=== PATIENT | female | born 1960 | race Caucasian/White ===

== ENCOUNTER 2018-11-28 12:32 | Emergency (ER) | payer MEDICAID, OTHER ==
[~2018-11-28] VITALS: Ht 149.9 cm; Wt 81.6 kg
[2018-11-28 13:40] LABS: Basophils # (auto) 0.1 uL; Basophils % (auto) 1.1 % (0.0-2.0); Eosinophils # (auto) 0.1 uL; Eosinophils % (auto) 1.2 % (0.0-7.0); Hematocrit 42.1 % (36.0-46.0); Hemoglobin 14.3 g/dL (12.2-16.2); Lymphocytes # (auto) 0.5 uL; Lymphocytes % (auto) 7.2 % (10.0-50.0); Mean Corpuscular Hemoglobin 30.5 pg (28.0-32.0); Mean Corpuscular Hgb Conc. 33.9 g/dL (32.0-36.0); Mean Corpuscular Volume 89.8 fL (80.0-100.0); Monocytes # (auto) 0.4 uL; Monocytes % (auto) 5.9 % (0.0-12.0); Neutrophils # (auto) 6.2 uL; Neutrophils % (auto) 84.6 % (37.0-80.0); Nucleated Red Blood Cells % 0.1 %; Platelet Count (auto) 313 10^3/uL (140-450); Red Blood Cells 4.69 10^6/uL (4.0-5.20); Red Cell Distribution Width 14.1 % (11.8-14.3); White Blood Cell 7.4 10^3/uL (4.4-10.8)
[2018-11-28 13:54] LABS: Albumin 3.3 g/dL (3.4-5.0); Calcium 9.5 mg/dL (8.5-10.1); Potassium 3.8 mmol/L (3.5-5.1)
[2018-11-28 13:58] LABS: BUN/Creatinine Ratio 12.7; Total Protein 7.7 g/dL (6.4-8.2)
[2018-11-28 14:18] LABS: INR 0.99 (0.9-1.15); Partial Thromboplastin Time 26.5 sec (23.64-32.05)
[2018-11-28 14:50] LABS: Urine Bacteria FEW /hpf (None Seen); Urine Blood 3+ /uL (Negative); Urine Mucus FEW (None Seen); Urine Specific Gravity 1.016 (1.001-1.035); Urine WBC 73 /hpf (0 - 5)
[2018-11-28] MEDS ORDERED: cloNIDine HCL 0.1 MG TAB PO ONE ×2 (15:15→17:30)
[2018-11-28] MEDS ORDERED: cefTRIAXone 1GM/50ML D5W 50 ML IV ONE (15:45)
[2018-11-28] MEDS ORDERED: ALPRAZolam 0.5 MG TAB PO ONE (17:30)
[2018-11-28] MEDS ORDERED: ACETAMINOPHEN 325 MG TAB PO ONE (19:00)
[2018-11-28 19:53] VITALS: BP 140/77
== END 2018-11-28 20:05 | disposition home or self-care (01) ==
LOC: ER 12:32
DX: N39.0 Urinary tract infection, site not specified (principal); I10 Essential (primary) hypertension; F41.9 Anxiety disorder, unspecified; R22.9 Localized swelling, mass and lump, unspecified; Z63.4 Disappearance and death of family member; Z53.29 Procedure and treatment not carried out because of patient's decision for other reasons
CPT/HCPCS: 36415; 71045; 74176; 80053; 81001; 82150; 83690; 83735; 84702; 85025; 85610; 85730; 93005; 94761; 96365; 99284; J0696

== ENCOUNTER 2019-01-08 01:58 | Emergency (ER) | payer MEDICAID ==
[~2019-01-08] VITALS: Ht 124.5 cm; Wt 63.5 kg
[2019-01-08] MEDS ORDERED: cloNIDine HCL 0.1 MG TAB PO ONE (02:30)
[2019-01-08] MEDS ORDERED: ONDANSETRON HCL 4 MG/2 ML VIAL IV ONE (03:00)
[2019-01-08] MEDS ORDERED: MORPHINE SULFATE 4 MG/ML SYR/VIAL IV ONE ×2 (03:00→07:00)
[2019-01-08 03:15] LABS: Basophils # (auto) 0.1 uL; Basophils % (auto) 1.1 % (0.0-2.0); Eosinophils # (auto) 0 uL; Eosinophils % (auto) 0.2 % (0.0-7.0); Hematocrit 46.3 % (36.0-46.0); Hemoglobin 15.6 g/dL (12.2-16.2); Lymphocytes # (auto) 0.4 uL; Lymphocytes % (auto) 3.4 % (10.0-50.0); Mean Corpuscular Hemoglobin 29.1 pg (28.0-32.0); Mean Corpuscular Hgb Conc. 33.7 g/dL (32.0-36.0); Mean Corpuscular Volume 86.4 fL (80.0-100.0); Monocytes # (auto) 0.6 uL; Monocytes % (auto) 5.3 % (0.0-12.0); Neutrophils # (auto) 10.4 uL; Platelet Count (auto) 439 10^3/uL (140-450); Red Blood Cells 5.36 10^6/uL (4.0-5.20); Red Cell Distribution Width 14.7 % (11.8-14.3); White Blood Cell 11.5 10^3/uL (4.4-10.8)
[2019-01-08 03:45] LABS: Albumin 3.3 g/dL (3.4-5.0); Anion Gap 11 (5-15); Blood Urea Nitrogen 59 mg/dL (7-18); Calcium 10.1 mg/dL (8.5-10.1); Carbon Dioxide 23 mmol/L (21-32); Chloride 99 mmol/L (98-107); Glucose 117 mg/dL (74-106); Lipase 421 U/L (73-393); Potassium 4.6 mmol/L (3.5-5.1); Sodium 133 mmol/L (136-145)
[2019-01-08 03:46] LABS: INR 1.04 (0.9-1.15); Partial Thromboplastin Time 26.6 sec (23.64-32.05)
[2019-01-08 03:47] LABS: Alanine Aminotransferase 15 U/L (13-56); Amylase 77 U/L (25-115); Aspartate Aminotransferase 16 U/L (15-37); BUN/Creatinine Ratio 24.2; GFR African American 26 mL/min; GFR Non-African American 22 mL/min
[2019-01-08 03:52] LABS: Alkaline Phosphatase 35 U/L (45-117); Bilirubin, Total 0.8 mg/dL (0.2-1.0); Total Protein 8.1 g/dL (6.4-8.2)
[2019-01-08] MEDS ORDERED: PROMETHAZINE HCL 25 MG/ML 1ML IV ONE ×2 (04:00→10:45)
[2019-01-08] MEDS ORDERED: LABETALOL HCL 5 MG/ML ML 20ML VIAL IV ONE (04:30)
[2019-01-08] MEDS ORDERED: SODIUM CHLORIDE 0.9% 1,000 ML IV ONE (09:45)
[2019-01-08] MEDS ORDERED: cefTRIAXone 1GM/50ML D5W 50 ML IV ONE (09:45)
[2019-01-08] MEDS ORDERED: CLINDAMYCIN 900MG IV 50 ML IV ONE (09:45)
[2019-01-08] MEDS ORDERED: BENZOCAINE (DENTAL) 20 % SPRAY 60ML MT ONE (09:45)
[2019-01-08] MEDS ORDERED: SODIUM CHLORIDE 0.9% 500 ML IV ONE (09:45)
[2019-01-08 10:30] VITALS: BP 153/84
== END 2019-01-08 10:58 | disposition short-term general hospital (02) ==
LOC: ER 01:58
DX: K85.90 Acute pancreatitis without necrosis or infection, unspecified (principal); R18.0 Malignant ascites; C55 Malignant neoplasm of uterus, part unspecified; N18.9 Chronic kidney disease, unspecified
CPT/HCPCS: 36415; 71045; 74176; 80053; 82150; 83605; 83690; 83880; 84484; 85025; 85610; 85730; 96365; 96368; 96375; 96376; 99285; J0696; J2270; J2405; J2550; J3490; J7030

== ENCOUNTER 2024-10-09 13:02 | Emergency (ER) | payer MEDICAID ==
[~2024-10-09] VITALS: Ht 149.9 cm; Wt 64.3 kg
[2024-10-09 13:30] VITALS: BP 122/94; PULSE 95; RESP 18; TEMP 97.9; O2SAT 100
--- NOTE | 2024-10-09 14:27 | ED.PDOC ---
History of Present Illness(SKN HPI Comments 64 y.o female with PMHx of uterine/cervical cancer, HTN, CKD, and DM, presents to the ED for an evaluation of a foreign object. Patient reports she accidently dropped a glass object in her kitchen, swept it up but when she came back to get something she was walking barefoot and stepped on a piece of glass. Patient reports feeling the glass inside, however was unable to retrieve it as she had pain on palpation. Patient presents with no bleeding or open wounds. Chief Complaint: Foreign Body Time Seen by MD: 14:19 Primary Care Provider: NONE History of Present Illness: Nurses Notes, Medications, Allergies Allergies: Coded Allergies: NO KNOWN ALLERGIES (Unverified , 11/28/18) Information Source: Patient Severity: Moderate Timing: Days (1) Duration: Since onset Location: Foot Mechanism: Spontaneous Onset Object: Glass Condition of Object: Contaminated Wound Type: Puncture Associated Signs and Symptoms: Redness, Swelling, Pain Past Medical History PAST MEDICAL HISTORY: Cancer, CKF, HTN Surgical History: Appendectomy, Hysterectomy [employer] History: Endometriosis, Ovarian Cancer, Ovarian Cysts, Uterine Fibroids Family History Family History: Family hx of Cancer Family History (Other): Mother had a history of breast cancer and uterine cancer [id number] has stomach cancer Social History Smoker: Non-Smoker Alcohol: Denies ETOH Use Drugs: Denies Drug Use Lives In: Home Constitutional: denies: chills, diaphoresis, fatigue, fever, malaise, sweats, weakness, others EENTM: denies: blurred vision, double vision, ear bleeding, ear discharge, ear drainage, ear pain, ear ringing, eye pain, eye redness, hearing loss, mouth pain, mouth swelling, nasal discharge, nose bleeding, nose congestion, nose pain, photophobia, tearing, throat pain, throat swelling, voice changes, others Respiratory: denies: cough, hemoptysis, orthopnea, SOB at rest, shortness of breath, SOB with excertion, stridor, wheezing, others Cardiovascular: denies: chest pain, dizzy spells, diaphoresis, Dyspnea on exertion, edema, irregular heart beat, left arm pain, lightheadedness, palpitations, PND, syncope, others Gastrointestinal: denies: abdomen distended, abdominal pain, blood streaked bowels, constipated, diarrhea, dysphagia, difficulty swallowing, hematemesis, melena, nausea, poor appetite, poor fluid intake, rectal bleeding, rectal pain, vomiting, others Genitourinary: denies: abnormal vagina bleeding, burning, dyspareunia, dysuria, flank pain, frequency, hematuria, incontinence, pain, , vagina discharge, urgency, others Neurological: denies: dizziness, fainting, headache, left sided numbness, left sided weakness, numbness, paresthesia, pre-existing deficit, right sided numbness, right sided weakness, seizure, speech problems, tingling, tremors, weakness, others Musculoskeletal: denies: back pain, gout, joint pain, joint swelling, muscle pain, muscle stiffness, neck pain, others Integumetry: reports: others; denies: bruises, change in color, change in hair/nails, dryness, laceration, lesions, lumps, rash, wounds Allergic/Immunocompromised: denies: Difficulty Healing, Frequent Infections, Hives, Itching, others Hematologic/Lymphatic: denies: anemia, blood clots, easy bleeding, easy bruising, swollen glands, others Endocrine: denies: excessive hunger, excessive sweating, excessive thirst, excessive urination, flushing, intolerance to cold, intolerance to heat, unexplained weight gain, unexplained weight loss, others Psychiatric: denies: anxiety, bipolar disorder, depression, hopeless, panic disorder, schizophrenia, sleepless, suicidal, others All Other Systems: Reviewed and Negative Physical Exam General Appearance: No Apparent Distress HEENT: Normal ENT Inspection, Pharynx Normal, TMs Normal Neck: Full Range of Motion, Non-Tender, Normal, Normal Inspection Respiratory: Chest Non-Tender, Lungs Clear, No Accessory Muscle Use, No Respiratory Distress, Normal Breath Sounds Cardiovascular: No Edema, No JVD, No Murmur, No Gallop, Normal Peripheral Pulses, Regular Rate/Rhythm Breast Exam: Deferred Gastrointestinal: No Organomegaly, Non Tender, No Pulsatile Mass, Normal Bowel Sounds, Soft Genitalia: Deferred Pelvic: Deferred Rectal: Deferred Extremities: No calf tenderness, Normal capillary refill, No pedal edema, Other (We did not palpate any foreign body to the left foot) Musculoskeletal : Apperance: Normal Neurologic: Alert, family support coordinator II-XII nml as Tested, No Motor Deficits, Normal Affect, Normal Mood, No Sensory Deficits Cerebellar Function: Normal Reflexes: Normal Skin: Dry, Normal Color, Warm Lymphatic: No Adenopathy Was a procedure done? Was a procedure done?: No Differential Diagnosis (INTG) Differential Diagnosis: Fracture Differential Diagnosis: Cellulitis, Puncture Wound, Other (foreign body- glass) X-Ray, Labs, Meds, VS Vital Signs Date Time Temp Pulse Resp B/P (MAP) Pulse Ox O2 Delivery O2 Flow Rate FiO2 10/09/24 13:30 97.9 95 18 122/94 (103) 100 97.9 We did attempt to call the patient for an x-ray but the patient has eloped from the department's Time of 1ST Reevaluation: 14:22 Reevaluation 1ST: Unchanged Patient Education/Counseling: Diagnosis, Treatment, Prognosis Family Education/Counseling: No Family Present SEPSIS Sepsis Screen Vital Signs Date Time Temp Pulse Resp B/P (MAP) Pulse Ox O2 Delivery O2 Flow Rate FiO2 10/09/24 13:30 97.9 95 18 122/94 (103) 100 97.9 Departure 1 Departure Time of Disposition: 17:54 Impression: Primary Impression: Foreign body in left foot Qualified Codes: S90.852A - Superficial foreign body, left foot, initial encounter Disposition: 07 LEFT AWOL/ELOPED Condition: Fair Critical Care Note Critical Care Time?: No Stability Stability form required: No I personally scribed for NIKOLAS HERRON MD ([email or web address]) on 10/09/24 at 14:27. Electronically submitted by Natividad Cunha ([facility]). NIKOLAS HERRON MD Oct 09, 2024 14:27
== END 2024-10-09 17:57 | disposition left against medical advice (07) ==
LOC: ER 13:02
DX: S90.852A Superficial foreign body, left foot, initial encounter (principal); I12.9 Hypertensive chronic kidney disease with stage 1 through stage 4 chronic kidney disease, or unspecified chronic kidney disease; N18.9 Chronic kidney disease, unspecified; Z90.49 Acquired absence of other specified parts of digestive tract; Z90.710 Acquired absence of both cervix and uterus; W25.XXXA Contact with sharp glass, initial encounter; Y93.01 Activity, walking, marching and hiking; Y92.89 Other specified places as the place of occurrence of the external cause; Y99.8 Other external cause status